=== PATIENT | male | born 1970 | race Caucasian/White ===

== ENCOUNTER 2017-10-31 14:46 | Emergency (ER) | payer BC ==
--- NOTE | 2017-10-31 15:01 | PDOC ---
Rapid Medical Evaluation Chief Complaint: Blood Pressure Problem Time Seen by Provider: 10/31/17 14:54 Medical Evaluation: Allergies Allergy/AdvReac Type Severity Reaction Status Date / Time pork derived (porcine) Allergy Verified 10/31/17 14:55 [Pork derived (porcine)] Pork/Porcine Containing Allergy Verified 10/31/17 14:55 Products [Pork/Porcine Product Derivatives] PORK Allergy Uncoded 10/31/17 14:55 SEAFOOD Allergy Uncoded 10/31/17 14:55 10/31/17 14:57 pt c/o: "heat" to left arm and left leg, so took his medication 20 minutes ago which were recently prescribed by PMD to take as needed. Pt currently asymptomatic. States had blurry vision while driving here but resolved upon arrival. No chest pain. Pt on brief exam: 169/89, lcta Pt ordered for: none. pt to proceed to the ED: Discharge Disposition - Diagnosis Elevated blood pressure reading - Referrals Referrals: Damon Browning MD [Primary Care Provider] - - Patient Instructions - Post Discharge Activity
[2017-10-31 15:02] VITALS: BMI 28.1
--- NOTE | 2017-10-31 17:46 | PDOC ---
*Physical Exam - Vital Signs Last Vital Signs Temp Pulse Resp BP Pulse Ox 98.9 F 100 H 17 169/89 98 10/31/17 14:55 10/31/17 14:55 10/31/17 14:55 10/31/17 14:55 10/31/17 14:55 Heart Score/ECG Review #1 ECG reviewed & interpreted by me at: 18:15 10/31/17 18:15 NSR 74, no std/trace, normal axis, normal intervals, QTC 410 msec. normal ecg Medical Decision Making - Medical Decision Making 10/31/17 17:43 Pt seen by the Advanced Practice Provider under my direct supervision Pt interviewed and examined Ancillary studies reviewed I agree with plan as outlined by the Advanced Practice Provider JONO Olivera 46-year-old male with no past medical history presents with heat-like feeling in the left upper and left lower extremity since 11:30 AM. 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 Started feel some intermittent paresthesias and "heat" like sensation. Denied midsternal chest pain or shortness of breath. Patient had taken a dose of Valium which had improved the symptoms. Patient reported that he has had similar symptoms 3 weeks ago that was like this is evaluated by his primary care physician or prescribed Valium. Patient was concerned that the symptoms are recurrent. The patient's neurological exam is normal. CN II to 12 intact. 5 out of 5 strength upper lower extremity. Speech, gait normal. Sensation intact throughout. No pronator drift. Finger to nose intact. I will obtain an EKG but there is no clinical suspicion for stroke at this time. Patient's presentations are atypical for cardiac at this time. I will however check EKG and if unremarkable, the patient feels comfortable in following up with his doctor tomorrow. I gave return precautions for recurrent chest pain or worsening symptoms to return to the ER. *DC/Admit/Observation/Transfer Diagnosis at time of Disposition: Elevated blood pressure reading - Referrals Referrals: Damon Browning MD [Primary Care Provider] - - Patient Instructions - Post Discharge Activity
--- NOTE | 2017-10-31 18:18 | PDOC ---
History of Present Illness - General Chief Complaint: Blood Pressure Problem Stated Complaint: TIA/CVA Time Seen by Provider: 10/31/17 14:54 History Source: Patient Exam Limitations: No Limitations Past History - Past Medical History Allergies/Adverse Reactions: Allergies Allergy/AdvReac Type Severity Reaction Status Date / Time pork derived (porcine) Allergy Verified 10/31/17 14:55 [Pork derived (porcine)] Pork/Porcine Containing Allergy Verified 10/31/17 14:55 Products [Pork/Porcine Product Derivatives] PORK Allergy Uncoded 10/31/17 14:55 SEAFOOD Allergy Uncoded 10/31/17 14:55 Home Medications: Ambulatory Orders Acetaminophen Oral Solution [Tylenol 160mg/5mL Oral Solution -] 650 mg PO Q6H # 120 ml 06/18/14 Oxycodone HCl/Acetaminophen [Percocet 5-325 mg Tablet] 2 combo PO Q6H PRN #0 tablet 06/18/14 Anemia: No Asthma: No Cancer: No Cardiac Disorders: No CVA: No COPD: No CHF: No DVT: No Dementia: No Diabetes: No GI Disorders: No Disorders: No HTN: No Hypercholesterolemia: No Liver Disease: No Seizures: No Thyroid Disease: No - Surgical History Abdominal Surgery: No Appendectomy: No Cardiac Surgery: No Cholecystectomy: No Lung Surgery: No Neurologic Surgery: No Orthopedic Surgery: Yes (LEFT ROTATOR CUFF 2012) - Immunization History Immunization Up to Date: Yes - Suicide/Smoking/Psychosocial Hx Smoking Status: No Smoking History: Never smoked Have you smoked in the past 12 months: No Number of Cigarettes Smoked Daily: 0 Information on smoking cessation initiated: No Hx Alcohol Use: No Drug/Substance Use Hx: No Substance Use Type: None Hx Substance Use Treatment: No *Physical Exam - Vital Signs Last Vital Signs Temp Pulse Resp BP Pulse Ox 98.9 F 100 H 17 169/89 98 10/31/17 14:55 10/31/17 14:55 10/31/17 14:55 10/31/17 14:55 10/31/17 14:55 *DC/Admit/Observation/Transfer Diagnosis at time of Disposition: Anxiety - Discharge Dispostion Disposition: HOME Admit: No - Referrals Referrals: Damon Browning MD [Primary Care Provider] - - Patient Instructions Printed Discharge Instructions: DI for Anxiety -- Adult Additional Instructions: Your EKG was normal today. Your symptoms resolved after taking her medication. Avoid stressful encounters if possible. Please follow-up with her primary care doctor this week. Return to the emergency department if you have headache, weakness, dizziness, numbness or weakness on one side her body, or any changes in your symptoms. - Post Discharge Activity Forms/Work/School Notes: Back to Work
[2017-10-31 18:49] VITALS: BP 132/68; PULSE 89; TEMP 98.2
--- NOTE | 2017-11-01 09:10 | EKG ---
Test Reason : Blood Pressure : / mmHG Vent. Rate : 074 BPM Atrial Rate : 074 BPM P-R Int : 150 ms QRS Dur : 078 ms QT Int : 370 ms P-R-T Axes : 068 045 024 degrees QTc Int : 410 ms NORMAL SINUS RHYTHM NORMAL ECG WHEN COMPARED WITH ECG OF 29-OCT-2004 18:57, NO SIGNIFICANT CHANGE WAS FOUND Confirmed by BERYL CROSS MD ([id number]) on 11/01/2017 9:10:40 AM Referred By: Confirmed By:BERYL CROSS MD
== END 2017-10-31 18:49 | disposition home or self-care (01) ==
LOC: JER 14:46
DX: F41.9 Anxiety disorder, unspecified (principal)
CPT/HCPCS: 93005; 93010; 99281-25

== ENCOUNTER 2018-05-30 09:17 | Emergency (ER) | payer BC ==
[2018-05-30 09:45] VITALS: BP 126/74; PULSE 76; TEMP 98.7; BMI 29.0
[2018-05-30] MEDS ORDERED: diphenhydrAMINE HCL 25 MG CAPSULE (FP) PO ONE ×2 (10:12→10:24)
--- NOTE | 2018-05-30 10:12 | PDOC ---
History of Present Illness - General Chief Complaint: Allergic Reaction Stated Complaint: ALLERGY REACTION / PORK Time Seen by Provider: 05/30/18 09:47 History Source: Patient Exam Limitations: No Limitations - History of Present Illness Initial Comments: 05/30/18 10:17 Pt is a 47 y/o M who presents to the ED for an allergic reaction. Pt states he is allergic to pork and he didn't realize there was whiting on his breakfast sandwich this morning. Pt admits to nausea and itching in the throat. Pt did not take any medication for his symptoms. Denies rash, itching, swelling to the lips or face, vomiting, difficulty breathing. Past History - Travel Traveled outside of the country in the last 30 days: No Close contact w/someone who was outside of country & ill: No - Past Medical History Allergies/Adverse Reactions: Allergies Allergy/AdvReac Type Severity Reaction Status Date / Time pork derived (porcine) Allergy Verified 05/30/18 09:42 [Pork derived (porcine)] Pork/Porcine Containing Allergy Verified 05/30/18 09:42 Products [Pork/Porcine Product Derivatives] PORK Allergy Uncoded 05/30/18 09:42 SEAFOOD Allergy Uncoded 05/30/18 09:42 Home Medications: Ambulatory Orders predniSONE [Deltasone -] 40 mg PO DAILY #8 tablet 05/30/18 Anemia: No Asthma: No Cancer: No Cardiac Disorders: No CVA: No COPD: No CHF: No DVT: No Dementia: No Diabetes: No GI Disorders: No Disorders: No HTN: No Hypercholesterolemia: No Liver Disease: No Seizures: No Thyroid Disease: No - Surgical History Abdominal Surgery: No Appendectomy: No Cardiac Surgery: No Cholecystectomy: No Lung Surgery: No Neurologic Surgery: No Orthopedic Surgery: Yes (LEFT ROTATOR CUFF 2012) - Immunization History Immunization Up to Date: Yes - Suicide/Smoking/Psychosocial Hx Smoking Status: No Smoking History: Never smoked Have you smoked in the past 12 months: No Number of Cigarettes Smoked Daily: 0 Hx Alcohol Use: No Drug/Substance Use Hx: No Substance Use Type: None Hx Substance Use Treatment: No Review of Systems - Review of Systems Able to Perform ROS?: Yes Comments:: 05/30/18 10:14 CONSTITUTIONAL: Absent: fever, chills, diaphoresis, generalized weakness, malaise, loss of appetite HEENT: Present: throat itching Absent: rhinorrhea, nasal congestion, throat pain, throat swelling, difficulty swallowing, mouth swelling, ear pain, eye pain, visual Changes CARDIOVASCULAR: Absent: chest pain, loss of consciousness, palpitations, irregular heart rate, peripheral edema RESPIRATORY: Absent: cough, shortness of breath, dyspnea with exertion, orthopnea, wheezing, stridor, hemoptysis GASTROINTESTINAL: Present: nausea Absent: abdominal pain, abdominal distension, vomiting, diarrhea , constipation, melena, hematochezia GENITOURINARY: Absent: dysuria, frequency, urgency, hesitancy, hematuria, flank pain, genital pain MUSCULOSKELETAL: Absent: myalgia, arthralgia, joint swelling SKIN: Absent: rash, itching, pallor HEMATOLOGIC/IMMUNOLOGIC: Absent: easy bleeding, easy bruising, lymphadenopathy, frequent infections ENDOCRINE: Absent: unexplained weight gain, unexplained weight loss, heat intolerance, cold intolerance NEUROLOGIC: Absent: headache, focal weakness or paresthesias, dizziness, unsteady gait, seizure, mental status changes, bladder or bowel incontinence PSYCHIATRIC: Absent: anxiety, depression, suicidal or homicidal ideation, hallucinations. Is the patient limited Macedonian proficient: No *Physical Exam - Vital Signs Last Vital Signs Temp Pulse Resp BP Pulse Ox 98.7 F 76 16 126/74 97 05/30/18 09:42 05/30/18 09:42 05/30/18 09:42 05/30/18 09:42 05/30/18 09:42 - Physical Exam Comments: 05/30/18 10:14 GENERAL: Well developed, well nourished. Awake and alert. No acute distress. HEENT: Normocephalic, atraumatic. PERRLA, EOMI. No conjunctival pallor. Sclera are non- icteric. Moist mucous membranes. Oropharynx is clear. NECK: Supple. Full ROM. No JVD. Carotid pulses 2+ and symmetric, without bruits. No thyromegaly. No lymphadenopathy. CARDIOVASCULAR: Regular rate and rhythm. No murmurs, rubs, or gallops. Distal pulses are 2+ and symmetric. PULMONARY: No evidence of respiratory distress. Lungs clear to auscultation bilaterally. No wheezing, rales or rhonchi. ABDOMINAL: Soft. Non-tender. Non-distended. No rebound or guarding. No organomegaly. Normoactive bowel sounds. MUSCULOSKELETAL Normal range of motion at all joints. No bony deformities or tenderness. No CVA tenderness. EXTREMITIES: No cyanosis. No clubbing. No edema. No calf tenderness. SKIN: Warm and dry. Normal capillary refill. No rashes. No jaundice. NEUROLOGICAL: Alert, awake, appropriate. Cranial nerves 2-12 intact. No deficits to light touch and temperature in face, upper extremities and lower extremities. No motor deficits in the in face, upper extremities and lower extremities. Normoreflexic in the upper and lower extremities. Normal speech. Toes are down- going bilaterally. Gait is normal without ataxia. PSYCHIATRIC: Cooperative. Good eye contact. Appropriate mood and affect. Medical Decision Making - Medical Decision Making 05/30/18 11:12 Pt is a 47 y/o M who presents to the ED for an allergic reaction. Pt states he is allergic to pork and he didn't realize there was whiting on his breakfast sandwich this morning. -On exam; air way is open clear and maintained. No air way swelling. Uvula is midline. -Lungs CTAB, no skin rash -Pt given prednisone, zantac, and benadryl for his throat itching -Pt observed for one hour in the ED with no rebound in symptoms -DC home, allergy follow up given. -I discussed the physical exam findings, ancillary test results and final diagnoses with the patient. I answered all of the patient's questions. The patient was satisfied with the care received and felt comfortable with the discharge plan and treatment plan. The Patient agrees to follow up with the primary care physician/specialist within 24-72 hours. Return precautions were given. *DC/Admit/Observation/Transfer Diagnosis at time of Disposition: Allergic reaction Qualifiers: Encounter type: initial encounter Qualified Code(s): T78.40XA - Allergy, unspecified, initial encounter - Discharge Dispostion Disposition: HOME Condition at time of disposition: Stable Decision to Admit order: No - Prescriptions Prescriptions: predniSONE [Deltasone -] 40 mg PO DAILY #8 tablet - Referrals Referrals: Avni Bar MD [Staff Physician] - - Patient Instructions Printed Discharge Instructions: DI for General Allergic Reactions Additional Instructions: You had an ALLERGIC reaction today. Please avoid eating pork products Please take prednisone as prescribed for the next 4 days. Take Benadryl 25mg every 8 hours as needed for itching or joint pain. Please follow up with her primary care doctor this week. Return to emergency department if you have difficulty breathing, throat pain, difficulty swallowing, or feel any changes in her symptoms. - Post Discharge Activity Forms/Work/School Notes: Back to Work
[2018-05-30] MEDS ORDERED: predniSONE 20 MG TABLET (UD) PO ONE (10:13)
[2018-05-30] MEDS ORDERED: RANITIDINE HCL 150 MG TABLET (FP) PO ONE (10:13)
[2018-05-30] MEDS ORDERED: RANITIDINE HCL 150 MG TABLET (FP) ONE (10:23)
[2018-05-30] MEDS ORDERED: predniSONE 20 MG TABLET (UD) ONE (10:24)
== END 2018-05-30 10:45 | disposition home or self-care (01) ==
LOC: JERFT 09:17
DX: T78.40XA Allergy, unspecified, initial encounter (principal); X58.XXXA Exposure to other specified factors, initial encounter; Y93.89 Activity, other specified; Y92.9 Unspecified place or not applicable
CPT/HCPCS: 99281-25

== ENCOUNTER 2019-05-26 12:58 | Emergency (ER) | payer BC | END 2019-05-26 15:59 | disposition home or self-care (01) | LOC: JER 12:58 ==

== ENCOUNTER 2021-02-28 10:00 | Emergency (ER) | payer BC ==
[2021-02-28 10:15] VITALS: BP 135/81; PULSE 82; TEMP 98; BMI 30.5
== END 2021-02-28 10:37 | disposition home or self-care (01) ==
LOC: JERFT 10:00
DX: S60.561A Insect bite (nonvenomous) of right hand, initial encounter (principal); S40.862A Insect bite (nonvenomous) of left upper arm, initial encounter
CPT/HCPCS: 99281-25